=== PATIENT | female | born 1980 ===

== ENCOUNTER 2023-05-07 14:33 | Inpatient (IN) | payer OTHER ==
[~2023-05-07] VITALS: Ht 157.5 cm; Wt 56.7 kg
== END 2023-05-13 10:40 | disposition home or self-care (01) | DRG 742 ==
LOC: O/R 05-12 09:28 → OB/GYN 05-12 09:45 → SURH 05-12 16:31 → SURG 05-12 18:40
PROVIDERS: Surgery; ADMIT Obstetrics & Gynecology Gynecology; ATTEND Obstetrics & Gynecology Gynecology
PROC: 0DNW4ZZ Release Peritoneum, Percutaneous Endoscopic Approach (ICD-10-PCS; 2023-05-12)
PROC: 0DNU4ZZ Release Omentum, Percutaneous Endoscopic Approach (ICD-10-PCS; 2023-05-12)
PROC: 0UN04ZZ Release Right Ovary, Percutaneous Endoscopic Approach (ICD-10-PCS; 2023-05-12)
PROC: 0TN74ZZ Release Left Ureter, Percutaneous Endoscopic Approach (ICD-10-PCS; 2023-05-12)
PROC: 0TJB8ZZ Inspection of Bladder, Via Natural or Artificial Opening Endoscopic (ICD-10-PCS; 2023-05-12)
PROC: 0DTU4ZZ Resection of Omentum, Percutaneous Endoscopic Approach (ICD-10-PCS; 2023-05-12)
PROC: 0UT24ZZ Resection of Bilateral Ovaries, Percutaneous Endoscopic Approach (ICD-10-PCS; principal; 2023-05-12 12:00)
PROC: 0UT74ZZ Resection of Bilateral Fallopian Tubes, Percutaneous Endoscopic Approach (ICD-10-PCS; 2023-05-12 12:00)
DX: N83.01 Follicular cyst of right ovary (principal); K56.51 Intestinal adhesions [bands], with partial obstruction; N83.11 Corpus luteum cyst of right ovary; N73.6 Female pelvic peritoneal adhesions (postinfective); N80.123 Deep endometriosis of bilateral ovaries; N80.50 Endometriosis of intestine, unspecified; Z20.822 Contact with and (suspected) exposure to COVID-19